=== PATIENT | male | born 1935 | race Caucasian/White ===

== ENCOUNTER 2018-11-19 12:43 | Emergency (ER) | payer OTHER ==
[~2018-11-19] VITALS: Ht 170.2 cm; Wt 65.8 kg
[2018-11-19 14:41] LABS: ABSOLUTE NEUTROPHILS 6.3 thou/uL (1.4-8.2); BASOPHILS 0.5 % (0.0-2.0); EOSINOPHILS 0.4 % (0.0-3.0); HEMATOCRIT 40.5 % (42.0-52.0); HEMOGLOBIN 13.6 gm/dL (14.0-18.0); LYMPHOCYTES 16.2 % (24.0-44.0); MCH 28.2 pg (26.0-34.0); MCHC 33.6 g/dL (28.0-37.0); MCV 83.9 fL (80.0-100.0); MONOCYTES 10.9 % (1.0-8.0); PLATELET COUNT 183 thou/uL (150-400); RBC 4.82 mil/uL (4.50-6.00); WBC 8.8 thou/uL (4.0-11.0)
[2018-11-19 14:51] LABS: ANION GAP 8 mmol/L (7-16); BUN 29 mg/dL (7-18); CALCIUM 9.4 mg/dL (8.5-10.1); CHLORIDE 99 mmol/L (98-107); CO2 30 mmol/L (21-32); CREATININE 1.2 mg/dL (0.7-1.3); GLUCOSE 138 mg/dL (74-106); POTASSIUM 3.6 mmol/L (3.5-5.1); SODIUM 137 mmol/L (136-145)
[2018-11-19] MEDS ORDERED: PROTONIX40 M1 PO (14:59)
[2018-11-19] MEDS ORDERED: LOPRESSOR50 PO (14:59)
[2018-11-19] MEDS ORDERED: NAMENDA XR28 MG PO (14:59)
[2018-11-19] MEDS ORDERED: ATORVASTATIN CA40 MG PO (14:59)
[2018-11-19 15:00] LABS: ALBUMIN 3.4 g/dL (3.4-5.0); SGOT 46 U/L (15-37); SGPT 33 U/L (30-65); TOTAL BILIRUBIN 0.7 mg/dL (<0.1-1.0); TOTAL PROTEIN 8.6 g/dL (6.4-8.2); TROPONIN-I <0.06 ng/mL (<0.06)
[2018-11-19] MEDS ORDERED: ARICEPT 5 MG TAB5 MG PO (15:00)
[2018-11-19] MEDS ORDERED: REMERON15 MG PO (15:00)
[2018-11-19] MEDS ORDERED: AMLODIPINE BESY10 MG PO (15:00)
[2018-11-19] MEDS ORDERED: CELEXA40 MG PO (15:01)
[2018-11-19] MEDS ORDERED: KLOR-CON 1010 MEQ PO (15:01)
[2018-11-19] MEDS ORDERED: LISINOPRIL20 MG PO (15:01)
[2018-11-19] MEDS ORDERED: CALCIUM 500 +1 EAC5 PO (15:02)
[2018-11-19] MEDS ORDERED: UNICOMPLEX M TA1 TA1 PO (15:02)
[2018-11-19] MEDS ORDERED: VITAMIN D2000 UNIT PO (15:02)
[2018-11-19] MEDS ORDERED: ASPIR 8181 MG PO (15:02)
[2018-11-19 16:09] LABS: URINE BILIRUBIN NEGATIVE (Negative); URINE BLOOD NEGATIVE (Negative); URINE CLARITY CLEAR; URINE COLOR YELLOW; URINE GLUCOSE-RANDOM* NEGATIVE (Negative); URINE KETONES NEGATIVE (Negative); URINE LEUKOCYTES-REFLEX NEGATIVE (Negative); URINE NITRITE-REFLEX NEGATIVE (Negative); URINE PROTEIN (DIPSTICK) NEGATIVE (Negative)
[2018-11-19 19:04] VITALS: BP 143/61
--- NOTE | 2018-11-20 09:19 | EKG ---
[address] [place] [address] [place] [address] ELECTROCARDIOGRAM REPORT Name: TRINI KWOK Room #: DEP [facility]#: [id number] ������������������ Admission: 11/19/18 ������������������ Attend Phys: Discharge: 11/19/18 ������������������ Date of : 39 Report #: [id number] ����������������������������������������������������������������� [id number] THIS REPORT FOR: //name// [facility] ED Test Date: 2018-11-19 Test Time: 14:28:09 Pat Name: TIRNI KWOK Department: Room: Gender: M Paramedic: FREDERIC : 1935 Requested By: Shadi Mcbride Order Number: [id number] MD: Keith Mejia Measurements Intervals [place] Rate: 60 P: 4 DC: 194 QRS: -23 QRSD: 92 T: 122 QT: 420 QTc: 420 Interpretive Statements Sinus rhythm LVH with secondary repolarization abnormality Compared to ECG 03/11/2005 13:06:15 Left ventricular hypertrophy now present Sinus bradycardia no longer present Electronically Signed On 11-20-2018 9:19:01 [employer] by Keith Mejia [email or web address] ��������������������������������������������� <ELECTRONICALLY SIGNED> ���������������������������������������� By: Keith Mejia MD, [facility] ��������������������������������������������� 11/20/18918 142 142 Keith Mejia MD, [facility] /EPI
== END 2018-11-19 19:00 | disposition home or self-care (01) ==
LOC: ER 12:43
PROVIDERS: Physician Assistant
DX: M71.522 Other bursitis, not elsewhere classified, left elbow (principal); M54.2 Cervicalgia; I10 Essential (primary) hypertension; F03.90 Unspecified dementia, unspecified severity, without behavioral disturbance, psychotic disturbance, mood disturbance, and anxiety; Z88.0 Allergy status to penicillin; Z95.1 Presence of aortocoronary bypass graft